=== PATIENT | male | born 1940 | race Hispanic/Latino ===

== ENCOUNTER → 2020-03-25 | Outpatient (CLI) | payer OTHER ==
[~2020-03-25] MED LIST: ACET-2247 PO; ALBUTEROL SULFATE 0.083% 2.5 MG/3 ML INH IH ONE; ASPI-1012 PO; CARV12.511 PO; CELE200 PO; DONE10TA43 PO; GABA-531 PO; GLIP10TA9 PO; INSLAN SQ; IPRA4AER IH; LEVO25TA54 PO; LISI2.5T2 PO; METF-446 PO; OXYC5 PO; PRAV40TA3 PO
== END | disposition home or self-care (01) ==
LOC: RESP 10:30
PROVIDERS: ATTEND Orthopaedic Surgery
DX: C34.90 Malignant neoplasm of unspecified part of unspecified bronchus or lung (principal)
CPT/HCPCS: 94060; 94727; 94729

== ENCOUNTER → 2020-04-27 | Outpatient (CLI) | payer OTHER ==
[~2020-04-27] MED LIST changes: -ALBUTEROL SULFATE 0.083% 2.5 MG/3 ML INH IH ONE; +REGADENOSON 0.4 MG/5 ML PF SYG IVP SCH
== END | disposition home or self-care (01) ==
LOC: SHCH 12:37
PROVIDERS: ATTEND Internal Medicine Cardiovascular Disease
DX: I25.10 Atherosclerotic heart disease of native coronary artery without angina pectoris (principal); I20.9 Angina pectoris, unspecified
CPT/HCPCS: 78452; 93017; 96374; A9500 ×2; J2785

== ENCOUNTER → 2020-04-29 | Outpatient (CLI) | payer OTHER ==
[~2020-04-29] MED LIST changes: -REGADENOSON 0.4 MG/5 ML PF SYG IVP SCH
== END | disposition home or self-care (01) ==
LOC: RAH 12:07
PROVIDERS: ATTEND Internal Medicine Cardiovascular Disease
DX: J44.9 Chronic obstructive pulmonary disease, unspecified (principal)
CPT/HCPCS: 71250

== ENCOUNTER → 2021-01-06 | Outpatient (CLI) | payer OTHER ==
[~2021-01-06] MED LIST changes: -ACET-2247 PO; +ACET1TAB25 PO; +ASCO500C6 PO; -ASPI-1012 PO; -CARV12.511 PO; -CELE200 PO; +CEPH500B PO; +EMPA25TA PO; +GABA600T10 PO; +GABA800T9 PO; +IBUP-2070 PO; -INSLAN SQ; +INSU100I21 SQ; +ISOS30TA92 PO; +MOME13HF2 IH; +NITR0.4T50 SL; -OXYC5 PO; +[UNRECOGNIZED DRUG - CODE] PO
== END | disposition home or self-care (01) ==
LOC: SHCH 07:38
PROVIDERS: ATTEND Internal Medicine Cardiovascular Disease
DX: I71.4 Abdominal aortic aneurysm, without rupture (principal)
CPT/HCPCS: 93978

== ENCOUNTER → 2022-11-01 | Outpatient (CLI) | payer OTHER ==
[~2022-11-01] MED LIST changes: +ACET-2079 PO; -ACET1TAB25 PO; -INSU100I21 SQ; +INSU100I22 SQ; +LISI2.5T13 PO; -LISI2.5T2 PO; +MOME13HF12 IH; -MOME13HF2 IH
== END | disposition home or self-care (01) ==
LOC: SHCH 13:02
PROVIDERS: ATTEND Internal Medicine Cardiovascular Disease
DX: I87.2 Venous insufficiency (chronic) (peripheral) (principal)
CPT/HCPCS: 93970

== ENCOUNTER → 2023-06-30 | Outpatient (CLI) | payer OTHER ==
[~2023-06-30] MED LIST changes: +IOHEXOL 350 MG/ML 100ML INFUS..BTL IV ONE
== END | disposition home or self-care (01) ==
LOC: RAH 07:14
PROVIDERS: ATTEND Internal Medicine Cardiovascular Disease
DX: I71.33 Infrarenal abdominal aortic aneurysm, ruptured (principal); I12.9 Hypertensive chronic kidney disease with stage 1 through stage 4 chronic kidney disease, or unspecified chronic kidney disease; N18.9 Chronic kidney disease, unspecified
CPT/HCPCS: 74174; Q9967